=== PATIENT | male | born 1980 | race Two or more races ===

== ENCOUNTER 2019-07-26 18:39 | Emergency (ER) | payer OTHER ==
[~2019-07-26] VITALS: Ht 175.3 cm; Wt 98.0 kg
[2019-07-26 20:14] VITALS: BP 134/86
== END 2019-07-26 20:17 | disposition home or self-care (01) ==
LOC: ER 18:39
DX: Z02.89 Encounter for other administrative examinations (principal)
CPT/HCPCS: 99283